=== PATIENT | female | born 1995 | race Caucasian/White ===

== ENCOUNTER 2019-10-27 04:24 | Emergency (ER) | payer MEDICAID, SELFPAY ==
--- NOTE | ~2019-10-27 | US_ITS ---
EXAMINATION: US OB <=14 wk fetus w TV DATE: 10/27/2019 07:48 INDICATION: Pelvic pain in . First trimester. TECHNIQUE: Real-time transabdominal and transvaginal pelvic ultrasound was performed. COMPARISON: None. FINDINGS: TRANSABDOMINAL ULTRASOUND: The uterus measures 8.5 x 5.0 x 3.9 cm. TRANSVAGINAL ULTRASOUND: There is no visible intrauterine gestational sac. The endometrial complex me asures 15 mm in thickness. The right ovary measures 3.8 x 2.0 x 2.3 cm. The left ovary measures 3.8 x 1.8 x 1.9 cm. There is trace free fluid in the pelvis. IMPRESSION: 1. No visible intrauterine gestational sac, which may be normal in early . Spontaneous abor tion and ectopic are not excluded. Serial beta hCGs are recommended. Reviewed, dictated and finalized at location A. IMPRESSION: 1. No visible intrauterine gestational sac, which may be normal in early pregn ena. Spontaneous and ectopic are not excluded. Serial beta hCGs are recommended.
[2019-10-27 04:34] VITALS: BP 124/79; PULSE 98; RESP 17; TEMP 37.2; O2SAT 100
[2019-10-27] MEDS: ACETAMINOPHEN 325 MG TABLET 650 MG PO (05:01)
[2019-10-27 05:12] LABS: Basophils Absolute Auto 0.1 K/mm3 (0.0-0.1); Basophils Percent Auto 0.6 % (0.2-1.2); Eosinophils Absolute Auto 0.3 K/mm3 (0-0.3); Eosinophils Percent Auto 2.5 % (0-4.4); Hematocrit 40.4 % (37.0-47.0); Hemoglobin 14.2 g/dL (12.0-15.0); Immature Granulocyte Absolute 0.02 K/mm3 (0.00-0.031); Immature Granulocyte Percent A 0.2 % (0-0.5); Lymphocytes Absolute Auto 3.78 K/mm3 (0.9-3.2); Lymphocytes Percent Auto 38.3 % (18.3-44.2); Mean Corpuscular HGB Conc 35.1 g/dl (32-36); Mean Corpuscular Hemoglobin 30.5 pg (26-34); Mean Corpuscular Volume 86.9 fl (80-100); Mean Platelet Volume 9.9 fl (7.4-10.4); Monocytes Absolute Auto 0.7 K/mm3 (0.1-0.6); Monocytes Percent Auto 7.1 % (2.6-8.5); Neutrophils Absolute Auto 5.1 K/mm3 (1.3-6.7); Neutrophils Percent Auto 51.3 % (45.5-73.1); Platelet Count Result 307 k/mm3 (150-375); Red Blood Count 4.65 M/mm3 (4.2-5.4); Red Cell Distribution Width 11.9 % (11.5-14.5); White Blood Count 9.9 K/mm3 (4.5-10.0)
[2019-10-27 05:27] LABS: Alanine Aminotransferase 15 U/L (4-35); Albumin Level 4.2 g/dL (3.5-5.1); Alkaline Phosphatase 53 U/L (38-126); Aspartate Amino Transferase 22 U/L (14-36); Bilirubin,Total 0.3 mg/dL (0.2-1.3); Blood Urea Nitrogen 8 mg/dL (7-17); Calcium 9.3 mg/dL (8.4-10.2); Carbon Dioxide 25 mmol/L (22-30); Chloride 103 mmol/L (98-107); Estimated CRCL calculation 137 ml/min; Estimated Glomerular Filt Rate > 60; Glucose 97 mg/dL (65-105); Potassium 3.8 mmol/L (3.4-5.0); Sodium 135 mmol/L (137-145)
--- NOTE | 2019-10-27 05:42 | ED.PREGNANCY ---
HPI - General Chief complaint: SVP Stated complaint: PREG; ABD PAIN Time Seen by Provider: 10/27/19 04:43 History of Present Illness HPI Narrative: Patient presents with mid abdominal pain for a couple of days now. Her last period was September 23. She is Ab1. She would gauge her pain at about a 3 out of 10. She has had some loose stools mixed with hard stools. No fever chills or sweats. She had a positive home test. She has had no vaginal bleeding or discharge. She does not take any prescription medicine. She does not smoke drink or do marijuana. 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 She has not had any surgery. Related Data Home Medications Medication Instructions Recorded Confirmed No Home Medications 10/27/19 10/27/19 Allergies Allergy/AdvReac Type Severity Reaction Status Date / Time No Known Allergies Allergy Unverified 10/27/19 04:26 Review of Systems Review of Systems: Narrative: CONSTITUTIONAL: Denies fever, chills, or sweats. EYES: Denies visual changes, redness, or discharge. ENT: Denies rhinorrhea, congestion, sore throat, or otalgia. CARDIOVASCULAR: Denies chest pain, palpitations, or edema. RESPIRATORY: Denies cough or dyspnea. GASTROINTESTINAL: She has abdominal pain, but not nausea, vomiting, or diarrhea. GENITOURINARY: Denies dysuria or hematuria. SKIN: Denies rash or itching. MUSCULOSKELETAL: Denies back pain, joint pain, or myalgia. NEUROLOGIC: Denies headache, numbness, or weakness. PSYCHIATRIC: Denies anxiety or depression. All systems reviewed & are unremarkable except as noted in HPI and below PMFSH Past Medical History Medical History (Updated 10/27/19 @ 06:42 by Jocelyne Banuelos MD) Miscarriage Social History Social History (Updated 10/27/19 @ 05:46 by Jocelyne Banuelos MD) Smoking status: Never smoker Alcohol intake: never Substance use: never Gender identity (if verbalized by the patient): Female Exam Narrative: Exam Narrative: GENERAL: Well-appearing, well-nourished, and in no acute distress. HEAD: Normocephalic, atraumatic. EYES: PERRLA and EOMI. ENT: Nares clear, no rhinorrhea or epistaxis. Mucous membranes moist. Facial piercings. NECK: Supple. CHEST: Clear to auscultation. No respiratory distress. HEART: Regular rate and rhythm. No murmur heard. Normal peripheral pulses. ABDOMEN: Soft, nontender, nondistended, normal active bowel sounds. EXTREMITIES: Normal range of motion. No edema. SKIN: Warm, dry, no rash. NEURO: No focal deficits. Alert and oriented x3. PSYCH: Normal mood and affect. : General: Yes bladder normal to palpation External Female Exam: normal external appearance Speculum Exam - Vagina: normal appearance of the vagina Speculum Exam - Cervix: normal appearance of the cervix and Cervical os closed Bimanual Exam- Adnexa, other: no masses and No adnexal tenderness Course Reevaluation(s) Reevaluation #1: Went in to see the patient and told her that her numbers were not as high as I thought they would be and let us go ahead and get the ultrasound. She agrees. Date: 10/27/19 Time: 06:41 Reevaluation #2: I reviewed in detail the patient that the ultrasound does not show a . I explained it could be early , miscarriage, or an ectopic that we could not find. I will call the OB on-call for follow-up, and the patient says her blood type is O-. We do not have that from her previous visit so I will order it now. Calling Dr. Wills for follow-up. Date: 10/27/19 Time: 08:00 Vital Signs Vital signs: Vital Signs Temperature 98.9 F 10/27/19 04:34 Pulse Rate 98 10/27/19 04:34 Respiratory Rate 17 10/27/19 04:34 Blood Pressure 124/79 10/27/19 04:34 Pulse Oximetry 100 10/27/19 04:34 Temperature 98.2 F 10/27/19 06:30 Pulse Rate 67 10/27/19 06:30 Respiratory Rate 19 10/27/19 06:30 Blood Pressure 112/81 10/27/19 06:30 Pulse Oximetry 100 10/27/19 06:30 MDM - OB/Uteri
[2019-10-27 05:48] LABS: Add Urine Microscopic? YES; Appearance Urine Cloudy (Clear); Bacteria Urine Trace /hpf; Bilirubin Urine Negative (Negative); Blood Urine 1+ (Negative); Color Urine Yellow (Yellow); Glucose Urine UA Negative (Negative); Ketones Urine Negative (Negative); Leukocyte Esterase Ur 1+ LEU/UL (Negative); Nitrate Urine Negative (Negative); Protein Urine 1+ mg/dL (Negative); Specific Grav Ur 1.017 (1.001-1.035); Squamous Epithelial Cell Urine Many /hpf (Few); Urobilinogen Urine Negative mg/dL (<2.0)
[2019-10-27 05:52] LABS: Pregnancy On Board Control Positive; Specific Gravity Ur 1.017 (1.010-1.035); Urine Pregnancy Test Positive
[2019-10-27 06:30] VITALS: BP 112/81; PULSE 67; RESP 19; TEMP 36.8; O2SAT 100
== END 2019-10-27 08:19 | disposition home or self-care (01) ==
PROVIDERS: Emergency Provider Emergency Medicine
DX: O26.891 Other specified pregnancy related conditions, first trimester (principal); R10.84 Generalized abdominal pain; Z3A.00 Weeks of gestation of pregnancy not specified
CPT/HCPCS: 36415; 76801; 76817; 80053; 81001; 81025; 84702; 85025; 86900; 86901; 87086; 87088; 99284; A9270

== ENCOUNTER 2019-10-29 16:08 | Outpatient (CLI) | payer MEDICAID, SELFPAY | END 2019-10-29 16:09 | disposition home or self-care (01) | PROVIDERS: Visit Provider Emergency Medicine | DX: O26.899 Other specified pregnancy related conditions, unspecified trimester (principal) | CPT/HCPCS: 36415; 84702 ==

== ENCOUNTER 2023-07-13 08:17 | Emergency (ER) | payer MEDICAID, SELFPAY ==
[2023-07-13 08:40] VITALS: BP 128/76; PULSE 95; RESP 20; TEMP 36.7; O2SAT 98
== END 2023-07-13 11:24 | disposition left against medical advice (07) ==
DX: R10.9 Unspecified abdominal pain (principal)
CPT/HCPCS: 99199